=== PATIENT | female | born 1975 | race Caucasian/White ===

== ENCOUNTER 2020-09-14 08:37 | Outpatient (CLI) | payer BC, SELFPAY ==
--- NOTE | ~2020-09-14 | MM_ITS ---
EXAMINATION: MM screening hardeep BI w ronnie HISTORY: Screening TECHNIQUE: Craniocaudal and mediolateral oblique 3-D tomosynthesis images were obtained and synthetic 2-D images were generated. CAD analysis was submitted and interpreted. COMPARISON: No prior mammogram is available for comparison at this institution. BREAST PARENCHYMAL COMPOSITION: The breasts are heterogeneously dense, which may obscure small masses . FINDINGS: There is no evidence of suspicious mass, calcification, or architectural distortion to sugg est malignancy in either breast. There has been no suspicious interval change. IMPRESSION: 1. No mammographic evidence of malignancy. 2. Recommend routine screening mammography in one year. BI-RADS Category 1: Negative Reviewed, dictated and finalized at location A.
== END 2020-09-14 08:38 | disposition home or self-care (01) ==
LOC: ANHIMG 08:40
PROVIDERS: PCP Family Medicine; Visit Provider Family Medicine
DX: Z12.31 Encounter for screening mammogram for malignant neoplasm of breast (principal)
CPT/HCPCS: 77063; 77067

== ENCOUNTER → 2021-04-28 09:32 | Outpatient (CLI) | payer BC, SELFPAY ==
--- NOTE | ~2021-04-28 | XR_ITS ---
EXAMINATION: XR chest 2V EXAM DATE: 04/28/2021 09:43 INDICATION: R07.89 - Other chest pain. Anterior central chest pain. TECHNIQUE: Frontal and lateral projections of the chest obtained and reviewed. Comparison is made to prior examination from 01/11/2015. FINDINGS: The lungs are clear. There are no pleural effusions. The cardiomediastinal silhouette is within normal limits. There is no pneumothorax suspected. The bones and soft tissues are unremarkab le. IMPRESSION: No acute cardiopulmonary findings. Reviewed, dictated and finalized at location B.
== END ==
PROVIDERS: PCP Family Medicine; Visit Provider Family Medicine
DX: R07.89 Other chest pain (principal)
CPT/HCPCS: 71046

== ENCOUNTER → 2021-05-05 11:54 | Outpatient (CLI) | payer BC, SELFPAY ==
--- NOTE | ~2021-05-05 | US_ITS ---
EXAMINATION: US thyroid EXAM DATE: 05/05/2021 12:10 INDICATION: E04.1 - Nontoxic single thyroid nodule. Prior FNA 2011, benign results. TECHNIQUE: Multiple grayscale and Doppler images of the thyroid were obtained (by a technologist who performed the scan) and subsequently reviewed. Individual nodules and recommendations may be reporte d in accordance with TI-RADS system as designated by the 2017 ACR White Paper TI-RADS committee. The re is no prior study for comparison. FINDINGS: The right thyroid lobe measures 5.7 x 2.5 x 2.0 cm, the left measuring 5.3 x 2.3 x 2.0 cm. There is d iffusely heterogeneous thyroid echogenicity. There are right and left thyroid nodules measuring up to 1 cm, do not appear significant change compared to prior study. The one on the left was probably pre viously biopsied nodule. IMPRESSION: 1. Multinodular goiter, stable. Reviewed, dictated and finalized at location A.
== END ==
PROVIDERS: PCP Family Medicine; Visit Provider Family Medicine
DX: E04.2 Nontoxic multinodular goiter (principal)
CPT/HCPCS: 76536

== ENCOUNTER 2022-03-07 16:24 | Outpatient (CLI) | payer BC, SELFPAY ==
--- NOTE | ~2022-03-07 | MM_ITS ---
EXAMINATION: MM screening [facility] BI w ronnie HISTORY: .. TECHNIQUE: Craniocaudal and mediolateral oblique 3-D tomosynthesis images were obtained and synthetic 2-D images were generated. CAD analysis was submitted and interpreted. COMPARISON: 09/14/2020 bilateral screening mammogram BREAST PARENCHYMAL COMPOSITION: The breasts are heterogeneously dense, which may obscure small masses . FINDINGS: Architectural distortion is suggested in the lower outer right breast at mid depth (cranioc audal Tomosynthesis image ). Diagnostic right mammogram and right breast ultrasound examination are recommended. Otherwise there is no evidence of suspicious mass, calcification, or architectural distortion to sugg est malignancy in either breast. There has been no other suspicious interval change. IMPRESSION: 1. Architectural distortion is suggested at right breast 2. Diagnostic right mammogram and right breast ultrasound are recommended BI-RADS Category 0: Incomplete: Needs additional imaging evaluation. Reviewed, dictated and finalized at location A.
== END 2022-03-07 16:25 | disposition home or self-care (01) ==
PROVIDERS: PCP Family Medicine; Visit Provider Family Medicine
DX: Z12.31 Encounter for screening mammogram for malignant neoplasm of breast (principal); R92.8 Other abnormal and inconclusive findings on diagnostic imaging of breast
CPT/HCPCS: 77063; 77067

== ENCOUNTER 2022-03-26 12:11 | Outpatient (CLI) | payer BC, SELFPAY ==
--- NOTE | ~2022-03-26 | MMUS_ITS ---
EXAMINATION: MM diagnostic hardeep RT w ronnie, US breast RT complete HISTORY: Architectural distortion is suggested in right breast on 03/07/2022 screening mammogram TECHNIQUE: Additional 3-D tomosynthesis images of the right breast were performed and synthetic 2-D i mages were generated. CAD analysis was submitted and interpreted. High resolution complete right [address] ultrasound including all four quadrants and subareolar area was performed. COMPARISON: 03/07/2022 bilateral screening mammogram FINDINGS: MAMMOGRAPHIC FINDINGS: No reproducible mass or architectural distortion is evident. ULTRASOUND: Right breast 7:00 5 cm from nipple: Parallel circumscribed sonolucency measuring 7 x 3 x 6 mm, with t hrough transmission, consistent with simple cyst. No suspicious mass is detected elsewhere in the right breast. IMPRESSION: 1. Benign right breast 7:00 cyst 2. Routine mammographic screening is recommended BI-RADS Category 2: Benign finding(s). Reviewed, dictated and finalized at location A. IMPRESSION: 1. Benign right breast 7:00 cyst 2. Routine mammographic screening is recommended BI-RADS Category 2: Benign finding(s).
== END 2022-03-26 12:12 | disposition home or self-care (01) ==
LOC: ANHIMG 12:12
PROVIDERS: PCP Family Medicine; Visit Provider Nurse Practitioner Gerontology
DX: R92.8 Other abnormal and inconclusive findings on diagnostic imaging of breast (principal); Z80.3 Family history of malignant neoplasm of breast
CPT/HCPCS: 76641; 77061; 77065; G0279

== ENCOUNTER 2023-03-19 11:39 | Observation (INO) | payer BC, SELFPAY ==
--- NOTE | ~2023-03-19 | CT_ITS ---
Non-contrast Head CT History: Facial drooping Technique: Axial non-contrast imaging of the brain was performed. Dose reduction technique was used on this scan by utilizing automated exposure control and iterative reconstruction technique. The dose -length product (DLP) was 529.67 mGy-cm. Findings: There is a 2.2 cm parenchymal mass in the left frontal lobe (axial image 34). The ventricle s and subarachnoid spaces are normal in size. The calvarium appears normal. The visualized paranasa l sinuses and mastoid air cells are clear. Impression: 2.2 cm parenchymal mass in the left frontal lobe. This is most compatible with neoplastic disease, li acosta metastasis, although other etiologies are not completely excluded. Pre and postcontrast MR recom mended to further assess this lesion, as well as to assess for any other smaller, more subtle lesions . Case discussed with Dr. Carrero at the time of this reading. Reviewed, dictated and finalized at location . Impression: 2.2 cm parenchymal mass in the left frontal lobe. This is most compatible with neoplastic disease, likely metastasis, although other etiologies are not comple tely excluded. Pre and postcontrast MR recommended to further assess this lesio n, as well as to assess for any other smaller, more subtle lesions. Case discussed with Dr. Carrero at the time of this reading.
--- NOTE | ~2023-03-19 | CT_ITS ---
EXAMINATION: CT chest abdomen pelvis w con DATE: 03/20/2023 12:40 INDICATION: Intracranial mass TECHNIQUE: Transaxial computed tomographic images of the chest, abdomen, and pelvis were obtained aft er the administration of 100 cc of Omnipaque 350 intravenous contrast. The dose-length product (DLP) was 1901.98 mGy-cm. Automated exposure control and iterative reconstruction technique were employed. COMPARISON: None FINDINGS: CHEST CT: The lungs are free of acute opacities. No pleural effusion or pneumothorax. No pathologically enlarge d thoracic lymph nodes are identified. The heart size is normal. There is mild thoracic spondylosis. ABDOMEN/PELVIS CT: The liver, spleen, pancreas, and adrenal glands are normal. The kidneys are unremarkable. A stone or stones are present in the nondistended gallbladder. No pathologically enlarged abdominal or pelvic ly mph nodes are identified. No free intraperitoneal gas or evidence of bowel obstruction. There is mild lumbar spondylosis. There is an umbilical hernia containing fat. IMPRESSION: 1. No source of intracranial metastasis identified. 2. Cholelithiasis. Reviewed, dictated and finalized at location B.
--- NOTE | ~2023-03-19 | CT_ITS ---
EXAMINATION: CT facial bones w con DATE: 03/20/2023 12:40 INDICATION: Tooth infection TECHNIQUE: Computed tomography (CT) of the facial bones and maxillofacial region was performed with 5 0 mL Omnipaque-350 intravenous contrast. Coronal reconstructions were obtained. Automated exposure co ntrol and iterative reconstruction technique were employed. The dose-length product was 363.60 mGy-cm . COMPARISON: None. FINDINGS: There is a prominent periapical lucency associated with the left maxillary second premolar (tooth #13 ) which erodes through the lateral cortex of the maxilla. There is no evident associated subperiostea l abscess. Maxillofacial bones are otherwise unremarkable with no fractures. The fernandez of the orbits and paranasal sinuses are normal. Paranasal sinuses, mastoid air cells and middle ear cavities are cl ear. Mild cervical spondylosis with developmentally unfused C2 spinous process. Borderline enlarged l evel 2 left jugular chain lymph node measuring up to 9 mm in maximal short axis diameter which is lik ivett reactive. No pathologically enlarged axillary or upper cervical lymphadenopathy. IMPRESSION: 1. Prominent periapical erosion at the left second premolar (tooth #13). Reviewed, dictated and finalized at location A.
--- NOTE | ~2023-03-19 | MR_ITS ---
MRI of the brain Clinical History: Left frontal lobe mass Technique: Axial and sagittal T1-weighted images were acquired. These were followed by axial T2-weigh alber, diffusion weighted, gradient, and FLAIR images. Following intravenous administration of 20 cc Mu ltiHance gadolinium, T1-weighted fat-sat imaging was performed in the axial, coronal, and sagittal pl anes. Findings: There is a 2.0 x 1.7 cm T2 hyperintense, T1 hypointense, mass in the left frontal lobe, wit h irregular peripheral enhancement (series 8 image 16). There is an additional 1.2 cm ovoid area of F LAIR hyperintense signal just posterior superior to this lesion (axial FLAIR image 17), however this lesion is not clearly appreciable on other pulse sequences, and demonstrates no appreciable postcontr ast enhancement. No acute infarct or intracranial hemorrhage identified. Ventricles and subarachnoid spaces are unremarkable. Orbits are unremarkable. Paranasal sinuses and m astoid air cells are clear. Major intracranial flow voids are intact. Sagittal midline structures are intact. IMPRESSION: 2.0 x 1.7 cm enhancing left frontal lobe mass, as detailed above, most suspicious for neoplasm/metast asis. Additional 1.2 cm ovoid FLAIR hyperintense lesion just posterior superior to the aforementioned lesio n, without postcontrast enhancement. This lesion is suspicious for an additional smaller nonenhancing neoplastic lesion, possibly cystic or mucinous in nature. Reviewed, dictated and finalized at location M. IMPRESSION: 2.0 x 1.7 cm enhancing left frontal lobe mass, as detailed above, most suspicio us for neoplasm/metastasis. Additional 1.2 cm ovoid FLAIR hyperintense lesion just posterior superior to th e aforementioned lesion, without postcontrast enhancement. This lesion is suspi cious for an additional smaller nonenhancing neoplastic lesion, possibly cystic or mucinous in nature.
[2023-03-19 12:43] VITALS: BP 137/94; PULSE 79; RESP 16; TEMP 36.7; O2SAT 100
--- NOTE | 2023-03-19 13:43 | ED.NEUROSD ---
HPI - Neuro Symptoms/Deficit General Chief Complaint: Suspected CVA Stated Complaint: facial drooping Time Seen by Provider: 03/19/23 13:23 History of Present Illness HPI Narrative: 47-year-old female present emergency department for evaluation of right-sided facial droop and some slurred speech. Patient reports the facial droop has been going on for approximately 2 months and the slurred speech has been worsening over the 2-week period. Patient states she has also had some intermittent right lower extremity numbness and weakness but had been seeing a chiropractor for scoliosis and felt that this had been improving. Patient states she is also have some difficulty with word finding that has been worsening over the last few years. Related Data Home Medications Medication Instructions Recorded Confirmed amoxicillin 500 mg tablet 500 mg PO TID 03/19/23 03/19/23 Allergies Allergy/AdvReac Type Severity Reaction Status Date / Time No Known Allergies Allergy Verified 04/17/22 09:02 Review of Systems Review of Systems: All systems reviewed & are unremarkable except as noted in HPI and below PMFSH Past Medical History Medical History Bunion History of miscarriage Weight gain Surgical History Surgical History History of partial hysterectomy S/P foot surgery, left Family History Family History (Updated 03/19/23 @ 15:57 by Ute Torrez RN) Sibling Depression Family history of thyroid disease Family history of obesity Family history of mental disorder Family history of malignant neoplasm of breast Father Family history of arthritis Depression Family history of diabetes mellitus in first degree relative Family history of obesity Family history of mental disorder Hypertension Grandparent Family history of malignant neoplasm of breast Family history of obesity Family history of congestive heart failure Hypertension Mother Family history of arthritis Depression Family history of diabetes mellitus in first degree relative Family history of malignant neoplasm of thyroid Family history of thyroid disease Family history of obesity Family history of mental disorder Hypertension Social History Social History Social History: Smoking packs per day: 0.1 Smoking cigarettes per day: 2.0 Years smoked: 6 Smoking pack-years: 0.60 Smoking status: Former smoker Tobacco type: cigarettes Second hand tobacco smoke exposure: No Smoking end date: 07/01/02 Alcohol intake: never Substance use: never Substance use type: does not use Lack of Transportation: No Lack of Food: Never True Current Housing: I Have Housing Concerned About Future Housing: No Difficulty Paying Gas/Electric Bills: No Difficulty Paying for Meds: No Currently Unemployed: No Education: Associate Degree Difficulty w/ Childcare or Family Care: No Living arrangements: with family Occupation/Education: occupation Gender identity (if verbalized by the patient): Female Sexual Orientation (if Verbalized by the Patient): Straight or Heterosexual Spiritual care concerns: No Exam Narrative: APPEARANCE: Well appearing, no pain, no distress, well-nourished. HEAD: normocephalic, atraumatic. EYES: PERRLA/EOMI, conjunctivae clear. NOSE: Normal no drainage EARS:TMS clear with good light reflex. THROAT: Pharynx clear, no exudate. NECK: Supple. No adenopathy, no masses. RESPIRATORY: Airway patent, respirations nonlabored. Clear to auscultation bilaterally, no rales, rhonchi, wheezing. CARDIOVASCULAR: Regular rate and rhythm without murmurs rubs or gallops. ABDOMINAL: Soft, nontender, nondistended, normal bowel sounds MUSCULOSKELETAL: Moves all extremities. Strength/ROM intact, No edema, No calf tenderness. NEURO:
[2023-03-19 13:59] LABS: Basophils Percent Auto 0.3 % (0.2-1.2); Eosinophils Absolute Auto 0.1 K/mm3 (0-0.3); Eosinophils Percent Auto 0.9 % (0-4.4); Hematocrit 42.4 % (37.0-47.0); Immature Granulocyte Absolute 0.04 K/mm3 (0.00-0.031); Immature Granulocyte Percent A 0.3 % (0-0.5); Lymphocytes Absolute Auto 2.97 K/mm3 (0.9-3.2); Lymphocytes Percent Auto 25.2 % (18.3-44.2); Mean Corpuscular Hemoglobin 29.2 pg (26-34); Mean Corpuscular Volume 88.5 fl (80-100); Mean Platelet Volume 9.7 fl (7.4-10.4); Monocytes Absolute Auto 0.8 K/mm3 (0.1-0.6); Monocytes Percent Auto 6.4 % (2.6-8.5); Neutrophils Absolute Auto 7.9 K/mm3 (1.3-6.7); Neutrophils Percent Auto 66.9 % (45.5-73.1); Platelet Count Result 350 k/mm3 (150-375); Red Blood Count 4.79 M/mm3 (4.2-5.4); Red Cell Distribution Width 13.1 % (11.5-14.5); White Blood Count 11.8 K/mm3 (4.5-10.0)
[2023-03-19 14:11] LABS: Alanine Aminotransferase 24 U/L (6-35); Alkaline Phosphatase 75 U/L (38-126); Anion Gap 11 mmol/L (8-16); Aspartate Amino Transferase 34 U/L (14-36); Bilirubin,Total 0.8 mg/dL (0.2-1.3); Blood Urea Nitrogen 19 mg/dL (7-17); Calcium 9.3 mg/dL (8.4-10.2); Carbon Dioxide 24 mmol/L (22-30); Chloride 102 mmol/L (98-107); Estimated CRCL calculation 116 ml/min; Estimated Glomerular Filt Rate > 60; Glucose 94 mg/dL (65-110); Sodium 137 mmol/L (137-145)
[2023-03-19 14:15] LABS: INR 0.9; Prothrombin Time 12.2 Seconds (11.1-14.7)
[2023-03-19 14:16] LABS: Partial Thromboplastin Time 26.2 SECONDS (22.3-36.8)
[2023-03-19 14:25] LABS: Appearance Urine Clear (Clear); Bilirubin Urine Negative (Negative); Blood Urine Negative (Negative); Color Urine Yellow (Yellow); Glucose Urine UA Negative (Negative); Ketones Urine 1+ mg/dL (Negative); Leukocyte Esterase Ur Negative LEU/UL (Negative); Nitrate Urine Negative (Negative); Protein Urine Negative (Negative); Specific Grav Ur 1.018 (1.001-1.035); Urobilinogen Urine 0.2 mg/dL (<2.0)
[2023-03-19 14:54] LABS: Add Urine Microscopic? NO
[2023-03-19 15:25] VITALS: BP 145/95; PULSE 95; RESP 16
--- NOTE | 2023-03-19 15:25 | PC.NURSE ---
mri screening completed.
--- NOTE | 2023-03-19 15:50 | ADMGEN ---
This patient, Stephania Pendleton, was admitted to 3 Med Surg Room 313-01. Patient/family oriented to hospital policies and general routines including ID bracelet, bed and alarms, visiting hours, pain management, procedures, bathroom and other care routines, personal items, smoking policy, room service/diet, and visiting hours. Information on how to activate the Rapid Response Team has been discussed. Patient/Family are encouraged to report perceived risks to care and to ask questions if they do not understand what they are told or what they should do.
[2023-03-19 16:10] VITALS: BP 134/94; PULSE 92; RESP 18; TEMP 36.2; O2SAT 98
[2023-03-19 20:00] VITALS: PULSE 83
[2023-03-19 22:00] VITALS: BP 131/79; PULSE 82; RESP 14; TEMP 36.4; O2SAT 98
--- NOTE | 2023-03-19 23:27 | PM.IMHP ---
H&P: HPI History of Present Illness Date/Time: 03/19/23 20:30 Chief Complaint: Right face droop and slurred speech. Narrative: This is a very pleasant 47-year-old female with history of Pereira palsy many years ago presented to the emergency department via private vehicle for evaluation of right facial drooping and slurred speech. The patient provides the following history. Sometime in November she noticed that the right side of her mouth was a bit droopy and it has remained that way. She did not think much of it at 1st given history of Pereira palsy and she initially told herself that it was probably due to the fact that she had an infection at the root of 1 of her front teeth. Despite being on a round of antibiotics however the drooping has persisted. The last couple of weeks she has noticed intermittent slurring of certain words and on occasion she has difficulties coming up with the words that she wants to say. Also of note she had a brief episode of tingling in her right arm and leg while driving to work sometime in December however that resolved and has not recurred after getting an adjustment at the chiropractor. She denies vertigo, acute visual changes, and focal weakness. Her dglvyd-ag-gye encouraged her to come in today given ongoing symptoms. Brain CT showed a 2.2 cm parenchymal loss in the left frontal lobe and she is being admitted in this setting for brain MRI and neurosurgery consultation. She has no known history of malignancy. She had an abnormal finding on the mammogram last year but had repeat images which were normal. She had a partial hysterectomy in 2014 for benign fibroids. 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 Her sister was diagnosed with breast cancer at the age of 36 (BRCA negative) and she past of metastatic disease at the age of 40. The patient has not noticed any lumps or bumps in her breasts or lymphadenopathy. She has not noticed any blood in her stool. She has lost 8 lb in the last 2 weeks however just started a new diet. Review of Systems Review of Systems: Twelve systems were reviewed and are negative except for as per HPI. [facility] Past Medical History Medical History (Updated 03/20/23 @ 13:49 by Vivi Mcnair PA-C) Pereira palsy (1994) History of miscarriage Surgical History Surgical History (Updated 03/20/23 @ 13:49 by Vivi Mcnair PA-C) History of bunionectomy of left great toe History of partial hysterectomy Benign fibroid tumors. Family History Family History Sibling Depression Family history of thyroid disease Family history of obesity Family history of mental disorder Family history of malignant neoplasm of breast Father Family history of arthritis Depression Family history of diabetes mellitus in first degree relative Family history of obesity Family history of mental disorder Hypertension Grandparent Family history of malignant neoplasm of breast Family history of obesity Family history of congestive heart failure Hypertension Mother Family history of arthritis Depression Family history of diabetes mellitus in first degree relative Family history of malignant neoplasm of thyroid Family history of thyroid disease Family history of obesity Family history of mental disorder Hypertension Social History Social History (Updated 03/20/23 @ 13:50 by Vivi Mcnair PA-C) Social History: Surrogate medical decision maker: Gonzalo Pendleton, spouse. Code status: Full code. Smoking packs per day: 0.1 Smoking cigarettes per day: 2.0 Years smoked: 6 Smoking pack-years: 0.60 Smoking status: Former smoker Tobacco type: cigarettes Second hand tobacco smoke exposure: No Smoking end date: 07/01/02 Alcohol intake: never Substance use: never Substance use type: does not use Lack of Transportation: No Lack of Food: Never True Current Housing: [place]
[2023-03-20] VITALS (10 sets, daily range): BP systolic 116–143; BP diastolic 74–91; PULSE 68–90; RESP 16–18; TEMP 36.4–37.3; O2SAT 97–98
--- NOTE | 2023-03-20 06:48 | PC.NURSE ---
I have reviewed the documentation of Talisha Currie RN and agree with recorded documentation.
[2023-03-20 07:32] LABS: CRP 0.6 mg/dL (<1.0)
--- NOTE | 2023-03-20 08:33 | WPDNEUROSGCN ---
Assessment and Plan Assessment and plan (1) Left frontal lobe mass: Code(s): G93.89 - Other specified disorders of brain Status: Acute (2) Facial droop: Code(s): R29.810 - Facial weakness Status: Acute (3) Slurred speech: Code(s): R47.81 - Slurred speech Status: Acute (4) Infected tooth: Code(s): K04.7 - Periapical abscess without sinus Status: Acute Plan Ms. Pendleton is a 47-year-old female with history of progressive facial weakness since mid-December and more recent development of slurred speech who was found to have a left frontal brain mass on imaging yesterday. She additionally has been diagnosed with an infected tooth on the left upper side for which she was recently started on antibiotics. She does have objective right facial weakness and dysarthric speech on physical exam. MRI brain shows a left frontal heterogeneously-enhancing lesion measuring 1.8 x 1.8cm with a second lesion on FLAIR posterior to this. My initial concern on review of this MRI was for a primary brain neoplasm like a glioma, with metastasis being a possibility. However, with the recent history of the infected tooth, I think we also need to consider abscess as a possibility. I do not see clear diffusion restriction on her MRI that would be more suggestive of infection, but her history is suspicious, and she does have an elevated WBC of 11.8. At this time, I would recommend some additional workup in the form of CT chest/abdomen/pelvis without/with contrast, CT face to evaluate her infected tooth, blood cultures, and ESR/CRP. Once the labs are drawn, I would also consider starting decadron 4mg q 6 hours to see whether she has any symptom improvement on steroids. Plan: -Recommend CT chest/abdomen/pelvis for metastatic workup -Recommend CT face to evaluate her tooth -Recommend obtaining blood cultures, CBC, ESR/CRP -Recommend starting decadron 4mg q 6 hours once her labs are drawn Consult date: 03/20/23 HPI: Stephania Pendleton is a 47 year old female with no significant medical history who presented to the ER yesterday with progressive right facial weakness and slurred speech. These symptoms started in mid-December at which time she noticed she was frequently biting her lip. At the time time, she was having pain in her upper left gum for which she went to the dentist who determined that she has a tooth that is dying. He is planning for a root canal but recently determined that her tooth is likely infected and prescribed her amoxicillin 500mg TID. She started taking this earlier this month and was recently prescribed a second course of amoxicillin. Over this period of time, she has developed progressive weakness in her face. She has had Pereira's Palsy in the past, so she thought she was likely developing this again. However, she has noticed more recent slurred speech. She called her doctor's office yesterday who recommended she go to the ER. In November, she was noticing numbness of her right arm and leg. She started therapy which has helped with these symptoms. She denies seizure-like episodes, headaches, fevers, nausea/vomiting, a personal cancer history, or other complaints. Review of Systems Review of Systems: All systems reviewed & are unremarkable except as noted in HPI and below PMFSH Past Medical History Medical History Bunion History of miscarriage Weight gain Surgical History Surgical History History of partial hysterectomy S/P foot surgery, left Family History Family History (Updated 03/19/23 @ 15:57 by Ute Torrez RN) Sibling Depression Family history of thyroid disease Family history of obesity Family history of mental disorder Family history of malignant neoplasm of breast Father Family history of arthritis Depression Family history of diabetes mellitus in first degree relative Famil
[2023-03-20] MEDS: AMOXICILLIN 500 MG CAPSULE PO ×3 (09:46→17:52)
[2023-03-20 09:59] LABS: CRP < 0.5 mg/dL (<1.0)
[2023-03-20 10:14] LABS: Erythrocyte Sedimentation Rate 23 mm/hr (0-20)
[2023-03-20 11:20] LABS: Basophils Percent Auto 0.4 % (0.2-1.2); Eosinophils Absolute Auto 0.1 K/mm3 (0-0.3); Eosinophils Percent Auto 1.1 % (0-4.4); Hematocrit 43.4 % (37.0-47.0); Hemoglobin 13.7 g/dL (12.0-15.0); Immature Granulocyte Absolute 0.02 K/mm3 (0.00-0.031); Immature Granulocyte Percent A 0.2 % (0-0.5); Lymphocytes Absolute Auto 2.23 K/mm3 (0.9-3.2); Lymphocytes Percent Auto 27.7 % (18.3-44.2); Mean Corpuscular HGB Conc 31.6 g/dl (32-36); Mean Corpuscular Volume 91.9 fl (80-100); Mean Platelet Volume 10.7 fl (7.4-10.4); Monocytes Absolute Auto 0.7 K/mm3 (0.1-0.6); Monocytes Percent Auto 8.2 % (2.6-8.5); Neutrophils Percent Auto 62.4 % (45.5-73.1); Platelet Count Result 347 k/mm3 (150-375); Red Blood Count 4.72 M/mm3 (4.2-5.4); Red Cell Distribution Width 13.4 % (11.5-14.5); White Blood Count 8.1 K/mm3 (4.5-10.0)
[2023-03-20 13:29] LABS: Alanine Aminotransferase 22 U/L (6-35); Albumin Level 4.6 g/dL (3.5-5.1); Alkaline Phosphatase 68 U/L (38-126); Anion Gap 10 mmol/L (8-16); Aspartate Amino Transferase 27 U/L (14-36); Blood Urea Nitrogen 11 mg/dL (7-17); Calcium 9.2 mg/dL (8.4-10.2); Carbon Dioxide 24 mmol/L (22-30); Chloride 102 mmol/L (98-107); Estimated CRCL calculation 103 ml/min; Estimated Glomerular Filt Rate > 60; Glucose 99 mg/dL (65-110); Sodium 136 mmol/L (137-145)
[2023-03-20] MEDS: DEXAMETHASONE SOD PHOS INJ 4 MG/ML VIAL IV PUSH ×2 (14:41→17:52)
--- NOTE | 2023-03-20 16:30 | PM.IMPN ---
Progress Note: A&P Assessment and Plan (1) Left frontal lobe mass: Code(s): G93.89 - Other specified disorders of brain Status: Acute Assessment and Plan: presented with right mouth droop and intermittent slurred speech CT of the brain showed 2.2 cm mass in the left frontal lobe MRI of the brain showed a 2.0 x 1.7 cm left frontal mass suspicious for neoplasm/metastasis Neurosurgery consulted thank you for your help CT of the chest/abdomen/pelvis no metastasis CT of the facial bones pending WBC slightly elevated upon arrival Continue amoxicillin for now Metastatic disease vs infection Start Decadron CRP <0.5/ESR 23 Time Spent With Patient Time: 42 minutes Time with patient: Greater than 35 minutes Subjective Date/time seen: 03/20/23 163 Interval history: 03/20/231629 Patient was doing well today. She does still suffer some slurred speech. She denies any current chest pain, shortness a breath, nausea, vomiting, diarrhea constipation. Did talk to her about her test results. Also talked to her about next plan of care. Patient did agree with the plan up to this point. 03/19/23? 20:30 This is a very pleasant 47-year-old female with history of Pereira palsy many years ago presented to the emergency department via private vehicle for evaluation of right facial drooping and slurred speech. The patient provides the following history. Sometime in November she noticed that the right side of her mouth was a bit droopy and it has remained that way. She did not think much of it at 1st given history of Pereira palsy and she initially told herself that it was probably due to the fact that she had an infection at the root of 1 of her front teeth. Despite being on a round of antibiotics however the drooping has persisted. The last couple of weeks she has noticed intermittent slurring of certain words and on occasion she has difficulties coming up with the words that she wants to say. Also of note she had a brief episode of tingling in her right arm and leg while driving to work sometime in December however that resolved and has not recurred after getting an adjustment at the chiropractor. She denies vertigo, acute visual changes, and focal weakness. Her [id number] encouraged her to come in today given ongoing symptoms. Brain CT showed a 2.2 cm parenchymal loss in the left frontal lobe and she is being admitted in this setting for brain MRI and neurosurgery consultation. She has no known history of malignancy. She had an abnormal finding on the mammogram last year but had repeat images which were normal. She had a partial hysterectomy in 2014 for benign fibroids. 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 Her sister was diagnosed with breast cancer at the age of 36 (BRCA negative) and she past of metastatic disease at the age of 40. The patient has not noticed any lumps or bumps in her breasts or lymphadenopathy. She has not noticed any blood in her stool. She has lost 8 lb in the last 2 weeks however just started a new diet. Review of Systems Review of Systems: All systems reviewed & are unremarkable except as noted in HPI and below Exam Narrative: General: well-nourished, well-appearing 47-year-old female, sitting up in bed, comfortable, NARD Neuro: awake, alert and oriented x4, speech clear, no focal neuro deficits noted HEENMT: normocephalic, atraumatic, EOMI, sclerae anicteric, moist oral mucosa Respiratory: Clear to auscultation bilaterally without crackles, rhonchi or wheezes, nonlabored breathing Cardio: regular rate, regular rhythm with S1-S2 Abdomen: nondistended, normoactive bowel sounds, soft, nontender to palpation Extremities: no edema, erythema, or tenderness to palpation, DP pulses 2+ bilaterally Skin: no rashes or lesions, warm and dry Psych: appropriate mood and affect, judgment and insight intact Objective Data Vital Signs Vital Signs: Vital Signs - 24
[2023-03-21] VITALS: PULSE 85
[2023-03-21] MEDS: DEXAMETHASONE SOD PHOS INJ 4 MG/ML VIAL IV PUSH ×2 (00:40→06:56)
[2023-03-21 04:00] VITALS: PULSE 60
[2023-03-21 06:00] VITALS: BP 125/81; PULSE 74; RESP 14; TEMP 36; O2SAT 98
[2023-03-21 07:28] LABS: Basophils Percent Auto 0.1 % (0.2-1.2); Hematocrit 42.5 % (37.0-47.0); Hemoglobin 14.1 g/dL (12.0-15.0); Immature Granulocyte Absolute 0.03 K/mm3 (0.00-0.031); Immature Granulocyte Percent A 0.3 % (0-0.5); Lymphocytes Absolute Auto 1.44 K/mm3 (0.9-3.2); Lymphocytes Percent Auto 12.7 % (18.3-44.2); Mean Corpuscular HGB Conc 33.2 g/dl (32-36); Mean Corpuscular Hemoglobin 29.4 pg (26-34); Mean Corpuscular Volume 88.5 fl (80-100); Monocytes Absolute Auto 0.4 K/mm3 (0.1-0.6); Monocytes Percent Auto 3.5 % (2.6-8.5); Neutrophils Absolute Auto 9.4 K/mm3 (1.3-6.7); Neutrophils Percent Auto 83.4 % (45.5-73.1); Platelet Count Result 371 k/mm3 (150-375); White Blood Count 11.3 K/mm3 (4.5-10.0)
[2023-03-21 07:38] LABS: Alanine Aminotransferase 26 U/L (6-35); Albumin Level 4.8 g/dL (3.5-5.1); Alkaline Phosphatase 78 U/L (38-126); Anion Gap 12 mmol/L (8-16); Aspartate Amino Transferase 28 U/L (14-36); Bilirubin,Total 0.7 mg/dL (0.2-1.3); Blood Urea Nitrogen 15 mg/dL (7-17); Calcium 9.5 mg/dL (8.4-10.2); Carbon Dioxide 24 mmol/L (22-30); Chloride 102 mmol/L (98-107); Estimated CRCL calculation 134 ml/min; Estimated Glomerular Filt Rate > 60; Glucose 115 mg/dL (65-110); Magnesium 2.3 mg/dL (1.6-2.3); Potassium 4.1 mmol/L (3.4-5.0); Sodium 138 mmol/L (137-145)
[2023-03-21 08:00] VITALS: PULSE 70
[2023-03-21 09:33] LABS: Cholesterol 221 mg/dL (0-200); HDL Direct 60 mg/dL; Triglycerides 57 mg/dL (<150)
[2023-03-21] MEDS: AMOXICILLIN/CLAVULANATE K 875-125 MG TAB 1 TABLET PO (09:37)
[2023-03-21 09:43] LABS: LDL Cholesterol Direct 102 mg/dL
--- NOTE | 2023-03-21 09:55 | WPDNEUROSGPN ---
Progress Note: A&P Assessment and Plan (1) Left frontal lobe mass: Code(s): G93.89 - Other specified disorders of brain Status: Acute (2) Slurred speech: Code(s): R47.81 - Slurred speech Status: Acute (3) Facial droop: Code(s): R29.810 - Facial weakness Status: Acute Plan Ms. Pendleton is a 47-year-old female with history of right facial weakness and more recent dysarthria who was found to have a left frontal brain mass. CT c/a/p was negative. CT face does not show convincing evidence of a tooth infection. At this point, I am concerned this mass represents a primary brain mass like a glioma. I think it is in her best interest to pursue diagnosis quickly in the form of a brain biopsy. I discussed options for this including transfer to [facility] today for hopeful biopsy early next week vs discharge home and scheduling surgery as an outpatient. We were able to get OR time next Saturday for biopsy. She would prefer this option. She will discharge home today. I do not think she needs to discharge on steroids at this point. Subjective Date/time seen: 03/21/23 09:55 Interval history: Ms. Pendleton is overall doing well this morning. She has not had any convincing improvement since initiation of steroids Review of Systems Review of Systems: All systems reviewed & are unremarkable except as noted in HPI and below Exam Narrative: AOx4 slight right facial weakness in lower face Dysarthric Naming, repetition intact No pronator drift Objective Data Vital Signs Vital Signs: Vital Signs - 24 hr 03/20/23 14:00 03/20/23 12:00 03/20/23 16:00 Temperature 99.2 F Pulse Rate 89 84 90 Respiratory Rate 16 Blood Pressure 143/91 H Pulse Oximetry 98 Oxygen Delivery 03/20/23 19:58 03/20/23 20:00 03/20/23 22:00 Temperature 97.6 F Pulse Rate 90 80 89 Respiratory Rate 16 18 Blood Pressure 117/74 Pulse Oximetry 98 97 Oxygen Delivery Room Air 03/21/23 00:00 03/21/23 04:00 03/21/23 06:00 Temperature 96.8 F L Pulse Rate 85 60 74 Respiratory Rate 14 Blood Pressure 125/81 Pulse Oximetry 98 Oxygen Delivery Intake/Output Intake/Output: Intake & Output 0903/19/23 03/20/23 03/21/23 23:59 23:59 23:59 23:59 Intake Total 240 1700 Balance 240 1700 Meds/Results Medications: Active Medications Generic Name Dose Route Start Last Admin Trade Name Heaven PRN Reason Stop Dose Admin Amoxicillin/Clavulanate Potassium 1 tablet 03/21/23 09:00 03/21/23 09:37 Amoxicillin/Clavulanate K 875-125 Mg Tab PO 1 tablet Q12HR EL Administration Dexamethasone Sodium Phosphate 4 mg 03/20/23 12:00 03/21/23 06:56 Dexamethasone Sod Phos Inj 4 Mg/Ml Vial IV PUSH 4 mg Q6HR EL Administration Radiology Results: ITS Impressions Head CT 03/19/23 12:00 Impression: 2.2 cm parenchymal mass in the left frontal lobe. This is most compatible with neoplastic disease, likely metastasis, although other etiologies are not completely excluded. Pre and postcontrast MR recommended to further assess this lesion, as well as to assess for any other smaller, more subtle lesions. Case discussed with Dr. Carrero at the time of this reading. Brain MRI 03/20/23 05:58 IMPRESSION: 2.0 x 1.7 cm enhancing left frontal lobe mass, as detailed above, most suspicious for neoplasm/metastasis. Additional 1.2 cm ovoid FLAIR hyperintense lesion just posterior superior to the aforementioned lesion, without postcontrast enhancement. This lesion is suspicious for an additional smaller nonenhancing neoplastic lesion, possibly cystic or mucinous in nature. Chest/Abdomen/Pelvis CT 03/20/23 13:04 IMPRESSION: 1. No source of intracranial metastasis identified. 2. Cholelithiasis. Face CT 03/20/23 16:37 IMPRESSION: 1. Prominent periapical erosion at the left second premolar (tooth #13). Labs Labs: Laboratory Results - last 24 hr 09
--- NOTE | 2023-03-21 10:45 | PM.DS ---
DS: Admitting Diagnosis Discharge Date 03/21/23 1045 Admitting Diagnosis Frontal lobe mass, slurred speech DS: Discharge Diagnosis Discharge Diagnosis (1) Left frontal lobe mass: Code(s): G93.89 - Other specified disorders of brain Status: Acute Assessment and Plan: presented with right mouth droop and intermittent slurred speech CT of the brain showed 2.2 cm mass in the left frontal lobe MRI of the brain showed a 2.0 x 1.7 cm left frontal mass suspicious for neoplasm/metastasis Neurosurgery consulted thank you for your help CT of the chest/abdomen/pelvis no metastasis CT of the facial bones prominent periapical erosion at the left second premolar (tooth #13) WBC slightly elevated upon arrival, did go down, but then back up a bit likely from the steroids Continue amoxicillin for now Metastatic disease vs infection Convert Decadron to prednisone CRP <0.5/ESR 23 DS: Summary Hospital Course Hospital Course: Patient is a 47-year-old female with history of Pereira's palsy and obesity who presented to the ED with right facial droop and slurred speech. CT of the brain showed 2.2 cm apparent time loss of the front to lobe. MRI showed a 2 x 1.7 cm frontal lobe mass suspicious for neoplasm or metastasis. Neurosurgery was consulted. CT of the chest abdomen pelvis showed no metastasis or any source of possible cancer. CT of the facial bones did show an infection at tooth #13. WBCs were elevated however started to trend down but a backup most likely related to steroids. Amoxicillin was continued. Will increase the dose 875/125. CRP was less than 0.5 ESR was 23. Currently she is feeling ok. She is not complaining of any chest pain, shortness of breath, nasuea, vomiting, diarrhea, constipation, weakness or fatigue. Gait is stable. Slurred speech is present but seems stable. Will have patient follow up with neurosurgery. It appears the patient will get a biopsy next week as OR has been scheduled for her on Saturday. Patient does verbalize understanding and all questions have been answered. Status at Discharge Functional status at discharge: independent ambulation Overall status at discharge: patient is progressing back to baseline Time Spent with Patient Time attestation: Total time spent providing and/or coordinating discharge services: 48 minutes Time spent: Greater than 30 minutes Specific discharge activities: Diagnostic testing, chart review, developing a treatment plan, education, care coordination documentation, physical exam, result review Exam Narrative: General: well-nourished, well-appearing 47-year-old female, sitting up in bed, comfortable, NARD Neuro: awake, alert and oriented x4, speech clear, no focal neuro deficits noted, slurred speech intermittent HEENMT: normocephalic, atraumatic, EOMI, sclerae anicteric, moist oral mucosa Respiratory: Clear to auscultation bilaterally without crackles, rhonchi or wheezes, nonlabored breathing Cardio: regular rate, regular rhythm with S1-S2 Abdomen: nondistended, normoactive bowel sounds, soft, nontender to palpation Extremities: no edema, erythema, or tenderness to palpation, DP pulses 2+ bilaterally Skin: no rashes or lesions, warm and dry Psych: appropriate mood and affect, judgment and insight intact DS: Data Data Completed and Pending Labs on day of discharge: Labs from last 24 hours 03/21/23 03/20/23 03/20/23 07:07 09:19 06:44 WBC 11.3 H 8.1 RBC 4.80 4.72 Hgb 14.1 13.7 Hct 42.5 43.4 MCV 88.5 91.9 MCH 29.4 29.0 MCHC 33.2 31.6 L RDW 13.0 13.4 Plt Count 371 347 MPV 10.0 10.7 H Immature Gran % (Auto) 0.3 0.2 Neut % (Auto) 83.4 H 62.4 Lymph % (Auto) 12.7 L 27.7 Evangeline % (Auto) 3.5 8.2 Eos % (Auto) 0.0 1.1 Baso % (Auto) 0.1 L 0.4 Lymph # (Auto) 1.44 2.23 Evangeline # (Auto) 0.4 0.7 H Eos # (Auto) 0.0 0.1 Baso # (Auto) 0.0 0.0 Abs Immat Gran (auto) 0.03 0.02 Absol
== END 2023-03-21 11:08 | disposition home or self-care (01) ==
LOC: ANHED 13:27 → ANH3MEDSUR 15:37
PROVIDERS: Nurse Practitioner; Physician Assistant; Admitting Provider Hospitalist; Emergency Provider Emergency Medicine; PCP Family Medicine; Visit Provider Chiropractor
DX: G93.89 Other specified disorders of brain (principal); K04.7 Periapical abscess without sinus; R29.810 Facial weakness; R47.81 Slurred speech; Z87.891 Personal history of nicotine dependence
CPT/HCPCS: 36415; 70450; 70487; 70553; 71260; 74177; 80053; 80061; 81003; 83735; 84145; 85025; 85610; 85652; 85730; 86140; 87040; 96374; 96376; 99285; A9270; A9577; G0378; J1100; Q9967